=== PATIENT | male | born 1980 | race Caucasian/White ===

== ENCOUNTER 2023-11-24 16:00 | Outpatient (CLI) | payer OTHER, MEDICARE | END 2023-11-24 16:01 | disposition home or self-care (01) | LOC: SLEEPLAB 16:00 | PROVIDERS: ATTEND Physician Assistant | DX: G47.33 Obstructive sleep apnea (adult) (pediatric) (principal); G47.10 Hypersomnia, unspecified; R06.83 Snoring | CPT/HCPCS: 95811 ==